=== PATIENT | female | born 1945 | race Caucasian/White ===

== ENCOUNTER 2019-05-27 07:03 | Day surgery (SDC) | payer OTHER ==
[~2019-05-27 07:03] MED LIST: ACIDOPHILUS LA1 EACH PO; AMBIEN10 MG PO; ATIVAN1 MG PO; ATIVAN2 M1 PO; IMODIUM A-D2 MG PO; LEVAQUIN500 MG PO; OMEPRAZOLE20 MG PO; PEPCID20 MG PO; PERCOCET 5-3251 EACH PO; URIN D.S. TABL1 EACH PO
== END 2019-05-27 11:11 | disposition home or self-care (01) ==
LOC: AMB-ENDOS 07:03 → ADM 06-20 13:00
DX: K64.0 First degree hemorrhoids (principal)